=== PATIENT | female | born 1985 | race African-American/Black ===

== ENCOUNTER 2018-10-12 22:23 | Observation (INO) ==
[2018-10-12 23:22] LABS: Basophils # 0.1 10*3/uL (0.0-0.2); Basophils % 0.4 % (0.0-0.8); Eosinophils % 0.3 % (0.00-10.9); Hemoglobin 12.3 GM/DL (12.0-16.0); Immature Granulocytes % 0.4 %; Immature Granulocytes Absolute 0.05 #; Lymphocytes # 3.9 10*3/uL (1.4-4.0); Lymphocytes % 31.5 % (21.3-54.2); Mean Corpuscular HGB Conc 31.5 GM/DL (32-36); Mean Corpuscular Volume 85.7 FL (87-102); Mean Platelet Volume 10.3 FL (9.6-12.0); Monocytes % 7.5 % (1.7-12.7); Neutrophils % 59.9 % (38.7-73.9); Platelet Count 261 T/CUMM (130-400); Red Blood Count 4.55 MC/CUMM (3.8-5.5); Red Cell Distribution Width 13.3 % (9.3-17.3); White Blood Count 12.3 T/CUMM (4-12)
[2018-10-12 23:36] LABS: Albumin 4.2 G/DL (3.4-5.0); Bilirubin,Total 1.7 MG/DL (0.2-1.0); Calcium 9.1 MG/DL (8.5-10.1); Osmolality,Calculated 274.7 MOS/KG (273-304); Total Protein 7.3 G/DL (6.4-8.3)
[2018-10-13 00:12] LABS: Apearance,Urine CLEAR (Clear); Bacteria,Urine Occasional /HPF (Few); Bilirubin,Urine Negative (Negative); Blood, Urine Small mg/dL (Negative); Glucose,Urine (UA) Negative (Negative); Ketones,Urine 80 mg/dL (Negative); Mucus,Urine Occasional /LPF (Occasional); Nitrite,Urine Negative (Negative); Protein,Urine Negative; RBC,Urine 1 /HPF (0-4); Squamous Epithelial Cell,Urine Occasional /HPF (0-10); Urine Color Yellow (Yellow); Urine Urobilinogen < 2.0 EU/DL (0.2-1.0); WBC,Urine 3 /HPF (0-6)
[2018-10-13 00:23] LABS: Barbiturates Screen,Urine Negative (Negative); Benzodiazepines Screen,Urine Negative (Negative); Cannabinoid Screen,Urine Negative (Negative); Opiate Screen,Urine Negative (Negative); Phencyclidine Screen,Urine Negative (Negative)
[2018-10-13] MEDS ORDERED: LABETALOL 20 MG/4 ML SYRINGE IV PRN (02:16)
[2018-10-13 03:33] LABS: Risk Ratio 3.41; VLDL CHOLESTEROL 12.2 MG/DL
[2018-10-13] MEDS: ASPIRIN EC 81 MG TABLET PO SCH (09:49)
[2018-10-13] MEDS: BUTALBITAL/ACETAMIN/CAFFEINE 50-325-40 MG TABLET PO PRN ×2 (17:16→22:10)
[2018-10-14] MEDS: ASPIRIN EC 81 MG TABLET PO SCH (08:54)
[2018-10-14] MEDS: BUTALBITAL/ACETAMIN/CAFFEINE 50-325-40 MG TABLET PO PRN (11:26)
[2018-10-14] MEDS ORDERED: SERTRALINE 25 MG TABLET PO SCH (13:14)
[2018-10-14 13:18] VITALS: BP 110/68
== END 2018-10-14 16:01 | disposition home or self-care (01) ==
LOC: EDBD → EDUNIT# → N.ED 22:23 → N.EDINP 22:23 → N.4E 10-13 01:39
PROVIDERS: ADMIT Internal Medicine; ATTEND Internal Medicine

== ENCOUNTER 2021-08-21 02:01 | Inpatient (IN) ==
[2021-08-21] MEDS ORDERED: BUTORPHANOL 2 MG/ML VIAL IV PRN (02:21)
[2021-08-21] MEDS ORDERED: ONDANSETRON 4 MG/2 ML VIAL IV PRN ×2 (02:21→17:38)
[2021-08-21] MEDS ORDERED: MEPERIDINE 50 MG/1 ML VIAL IV PRN (02:21)
[2021-08-21] MEDS: LACTATED RINGERS 1,000 ML IV SCH ×3 (02:30→13:55)
[2021-08-21] MEDS ORDERED: CITRIC ACID/SODIUM CITRATE 30 ML UDCUP PO ONE (02:34)
[2021-08-21] MEDS ORDERED: ePHEDrine 50 MG/ML VIAL IV PRN (02:34)
[2021-08-21] MEDS ORDERED: diphenhydrAMINE 50 MG/1 ML VIAL IV PRN ×2 (02:34)
[2021-08-21] MEDS ORDERED: PROMETHAZINE 25 MG/1 ML VIAL IM ONE (02:34)
[2021-08-21] MEDS ORDERED: hydrOXYzine HCL 25 MG/1 ML VIAL IM PRN (02:34)
[2021-08-21] MEDS ORDERED: ONDANSETRON 4 MG/2 ML VIAL IV ONE (02:34)
[2021-08-21] MEDS ORDERED: FAMOTIDINE 20 MG/2 ML VIAL IV ONE (02:34)
[2021-08-21] MEDS ORDERED: NALOXONE 0.4 MG/ML VIAL IV PRN (02:34)
[2021-08-21 02:44] LABS: Basophils # 0.1 10*3/uL (0.0-0.2); Basophils % 0.7 % (0.0-0.8); Eosinophils # 0.1 10*3/uL (0.0-0.87); Eosinophils % 0.3 % (0.00-10.9); Hematocrit 28.2 VOL% (35.7-47.0); Hemoglobin 8.8 GM/DL (12.0-16.0); Immature Granulocytes % 2.1 %; Lymphocytes # 3.2 10*3/uL (1.4-4.0); Lymphocytes % 16.9 % (21.3-54.2); Mean Corpuscular HGB Conc 31.2 GM/DL (32-36); Mean Corpuscular Volume 77.7 FL (87-102); Mean Platelet Volume 10.2 FL (9.6-12.0); NRBC # 0.02 10*3/uL; Platelet Count 241 T/CUMM (130-400); Red Blood Count 3.63 MC/CUMM (3.8-5.5); Red Cell Distribution Width 15.2 % (9.3-17.3); White Blood Count 18.9 T/CUMM (4-12)
[2021-08-21] MEDS ORDERED: OXYTOCIN/LR 20 UNIT/1,000 ML BAG IV SCH (03:30)
[2021-08-21] MEDS ORDERED: TRANEXAMIC ACID 1,000 MG/10 ML VIAL ONE (04:20)
[2021-08-21] MEDS ORDERED: miSOPROStoL 200 MCG TABLET ONE (04:20)
[2021-08-21] MEDS ORDERED: OXYTOCIN/LR 30 UNIT/1,000 ML BAG IV ONE ×2 (04:21→13:37)
[2021-08-21] MEDS ORDERED: SODIUM CHLORIDE 0.9% 0 ML IV ONE (04:21)
[2021-08-21] MEDS ORDERED: METHYLERGONOVINE 0.2 MG/1 ML AMP ONE (04:22)
[2021-08-21] MEDS ORDERED: CARBOPROST TROMETHAMINE 250 MCG/ML AMP IM ONE (04:22)
[2021-08-21] MEDS: fentaNYL 2 MCG/ROPIV 0.2% EPID 100 ML EPIDURAL SCH ×2 (04:47→11:59)
[2021-08-21 08:02] LABS: Mucus,Urine Occasional /LPF (Occasional); RBC,Urine 9 /HPF (0-4); Squamous Epithelial Cell,Urine Occasional /HPF (0-10)
[2021-08-21 08:03] LABS: Bilirubin,Urine Negative (Negative); Blood, Urine Trace mg/dL (Negative); Glucose,Urine (UA) Negative (Negative); Ketones,Urine 2+ mg/dL (Negative); Nitrite,Urine Negative (Negative); Protein,Urine Negative (Negative); Urine Appearance Clear (Clear); Urine Color Yellow (Yellow)
[2021-08-21] MEDS ORDERED: ceFAZolin 2,000 MG/50 ML DUPLEX IV ONE (13:35)
[2021-08-21] MEDS ORDERED: OXYTOCIN 10 UNIT/ML VIAL IM ONE (13:37)
[2021-08-21] MEDS ORDERED: ONDANSETRON 4 MG/2 ML VIAL ONE (13:55)
[2021-08-21] MEDS ORDERED: LIDOCAINE MPF 2% /EPI 20 ML VIAL ONE (13:55)
[2021-08-21 14:04] LABS: Bilirubin,Urine Negative (Negative); Blood, Urine Large mg/dL (Negative); Glucose,Urine (UA) Negative (Negative); Ketones,Urine Negative (Negative); Nitrite,Urine Negative (Negative); Protein,Urine >=300 mg/dL (Negative); Urine Color Amber (Yellow); Urine Specific Gravity 1.025 (1.001-1.035)
[2021-08-21 14:05] LABS: Urine Appearance Slightly Cloudy (Clear)
[2021-08-21 14:07] LABS: Mucus,Urine Occasional /LPF (Occasional); RBC,Urine 539 /HPF (0-4); Squamous Epithelial Cell,Urine Occasional /HPF (0-10); Transitional Epi Cells,Urine Occasional /HPF (<1)
[2021-08-21] MEDS ORDERED: ACETAMINOPHEN INJ 1,000 MG/100 ML VIAL IV ONE (14:20)
[2021-08-21] MEDS ORDERED: KETOROLAC 30 MG/1 ML VIAL ONE (14:20)
[2021-08-21] MEDS ORDERED: MIDAZOLAM 2 MG/2 ML VIAL ONE (14:30)
[2021-08-21] MEDS ORDERED: FUROSEMIDE 20 MG/2 ML VIAL ONE (14:34)
[2021-08-21 14:39] LABS: Cord Arterial Blood HCO3 21.5 MMOL/L
[2021-08-21 14:42] LABS: Cord Venous Blood HCO3 22.9 MMOL/L; Cord Venous Blood PCO2 48.7 MMHG; Cord Venous Blood PO2 23.4
[2021-08-21] MEDS ORDERED: ACETAMINOPHEN 325 MG TABLET PO PRN (17:38)
[2021-08-21] MEDS ORDERED: RHO(D) IMMUNE GLOBULIN 300 MCG SYRINGE IM ONE (17:38)
[2021-08-21] MEDS ORDERED: MAGNESIUM HYDROXIDE SUSP 30 ML UDCUP PO PRN (17:38)
[2021-08-21] MEDS ORDERED: OXYTOCIN/LR 20 UNIT/1,000 ML BAG IV ONE (17:38)
[2021-08-21] MEDS ORDERED: SIMETHICONE CHEW 80 MG TABLET PO PRN (17:38)
[2021-08-21] MEDS ORDERED: LACTATED RINGERS 1,000 ML IV SCH (18:00)
[2021-08-21] MEDS ORDERED: KETOROLAC 30 MG/1 ML VIAL IV SCH (22:00)
[2021-08-21] MEDS ORDERED: ACETAMINOPHEN 500 MG TABLET PO SCH (22:00)
[2021-08-21 23:02] LABS: Basophils % 0.2 % (0.0-0.8); Eosinophils % 0.1 % (0.00-10.9); Hematocrit 23.3 VOL% (35.7-47.0); Hemoglobin 7.2 GM/DL (12.0-16.0); Immature Granulocytes % 0.8 %; Immature Granulocytes Absolute 0.13 #; Lymphocytes # 1.6 10*3/uL (1.4-4.0); Lymphocytes % 9.8 % (21.3-54.2); Mean Corpuscular HGB Conc 30.9 GM/DL (32-36); Mean Corpuscular Volume 76.1 FL (87-102); Mean Platelet Volume 10.1 FL (9.6-12.0); Monocytes % 11.1 % (1.7-12.7); Platelet Count 210 T/CUMM (130-400); Red Blood Count 3.06 MC/CUMM (3.8-5.5); Red Cell Distribution Width 15.4 % (9.3-17.3); White Blood Count 15.8 T/CUMM (4-12)
[2021-08-21] MEDS: KETOROLAC 30 MG/1 ML VIAL IV SCH (23:25)
[2021-08-21 23:37] LABS: Lymphocytes 6 % (20-55); Segmented Neutrophils 88 % (50-85); Total Cells Counted 100
[2021-08-21 23:38] LABS: Platelet Estimate Adequate
[2021-08-21 23:39] LABS: Microcytosis 1+; Polychromasia 1+
[2021-08-21 23:40] LABS: Hypochromia 1+
[2021-08-22] MEDS: DOCUSATE SODIUM 100 MG CAPSULE PO SCH ×3 (01:00→21:02)
[2021-08-22] MEDS: KETOROLAC 30 MG/1 ML VIAL IV SCH (05:20)
[2021-08-22 05:39] LABS: Basophils % 0.2 % (0.0-0.8); Eosinophils # 0.1 10*3/uL (0.0-0.87); Eosinophils % 0.3 % (0.00-10.9); Hematocrit 21.3 VOL% (35.7-47.0); Hemoglobin 6.6 GM/DL (12.0-16.0); Immature Granulocytes % 0.9 %; Immature Granulocytes Absolute 0.14 #; Lymphocytes # 2.2 10*3/uL (1.4-4.0); Lymphocytes % 13.7 % (21.3-54.2); Mean Corpuscular Volume 77.2 FL (87-102); Mean Platelet Volume 10.7 FL (9.6-12.0); Monocytes % 11.1 % (1.7-12.7); Neutrophils % 73.8 % (38.7-73.9); Platelet Count 210 T/CUMM (130-400); Red Blood Count 2.76 MC/CUMM (3.8-5.5); Red Cell Distribution Width 15.5 % (9.3-17.3); White Blood Count 15.7 T/CUMM (4-12)
[2021-08-22 06:05] LABS: Eosinophils 1 % (0-10); Hypochromia 2+; Lymphocytes 12 % (20-55); Microcytosis 1+; Platelet Estimate Adequate; Segmented Neutrophils 78 % (50-85); Total Cells Counted 100
[2021-08-22] MEDS ORDERED: SODIUM CHLORIDE 0.9% 1,000 ML IV PRN (06:56)
[2021-08-22] MEDS: FERROUS SULFATE 325 MG TABLET PO SCH ×2 (09:09→21:02)
[2021-08-22] MEDS: MULTIVITAMIN (PRENATAL) TABLET PO SCH (09:09)
[2021-08-22] MEDS: METOCLOPRAMIDE 10 MG TABLET PO SCH ×2 (09:09→16:39)
[2021-08-22] MEDS: IBUPROFEN 800 MG TABLET PO PRN ×2 (11:45→22:18)
[2021-08-22 20:23] LABS: Basophils % 0.2 % (0.0-0.8); Eosinophils # 0.1 10*3/uL (0.0-0.87); Eosinophils % 0.5 % (0.00-10.9); Hematocrit 29.3 VOL% (35.7-47.0); Hemoglobin 9.4 GM/DL (12.0-16.0); Immature Granulocytes % 1.4 %; Immature Granulocytes Absolute 0.23 #; Lymphocytes # 2.7 10*3/uL (1.4-4.0); Lymphocytes % 16.2 % (21.3-54.2); Mean Corpuscular HGB Conc 32.1 GM/DL (32-36); Mean Corpuscular Volume 80.5 FL (87-102); Mean Platelet Volume 9.9 FL (9.6-12.0); Monocytes % 9.7 % (1.7-12.7); Platelet Count 226 T/CUMM (130-400); Red Blood Count 3.64 MC/CUMM (3.8-5.5); Red Cell Distribution Width 16.7 % (9.3-17.3); White Blood Count 16.6 T/CUMM (4-12)
[2021-08-23] MEDS: METOCLOPRAMIDE 10 MG TABLET PO SCH ×2 (00:41→09:01)
[2021-08-23] MEDS: DOCUSATE SODIUM 100 MG CAPSULE PO SCH (09:01)
[2021-08-23] MEDS: MULTIVITAMIN (PRENATAL) TABLET PO SCH (09:01)
[2021-08-23] MEDS: FERROUS SULFATE 325 MG TABLET PO SCH (09:01)
[2021-08-23 13:47] VITALS: BP 115/65
== END 2021-08-23 14:00 | disposition home or self-care (01) | DRG 540 ==
LOC: N.LD 02:01 → N.OB 21:20
PROVIDERS: ADMIT Obstetrics & Gynecology; ATTEND Obstetrics & Gynecology
PROC: LDCSECT (ICD-10-PCS; 2021-08-21 13:30)